=== PATIENT | male | born 1985 | race Two or more races ===

== ENCOUNTER 2017-05-11 20:06 | Emergency (ER) | payer MEDICAID ==
[~2017-05-11] VITALS: Ht 177.8 cm; Wt 77.1 kg
--- NOTE | 2017-05-11 20:15 | NUR ---
BB FAMILY; RIGHT FLANK PAIN. PT AOX3 RR EVEN AND UNLABORED. NO SOB NOTED. NAD NOTED. NO NVD AT THIS TIME. PT GOWNED AND PLACED ON MONITOR WAITING FOR MD NOBLES. PT NOTED HX OF KIDNEY STONES
[2017-05-11 20:30] LABS: BASOPHILS # (AUTO) 0.1 /CMM (0.0-0.2); EOSINOPHILS # (AUTO) 0.2 /CMM (0.0-0.7); EOSINOPHILS % (AUTO) 1.4 % (0.0-6.0); HEMATOCRIT 47 % (39-51); HEMOGLOBIN 16.2 g/dL (13.5-17.5); LYMPHOCYTES # (AUTO) 4.1 /CMM (0.8-4.8); LYMPHOCYTES % (AUTO) 32.8 % (20.0-44.0); MEAN CORPUSCULAR HEMOGLOBIN 29 PG (26.0-33.0); MEAN CORPUSCULAR HGB CONC 35 g/dl (31.0-36.0); MEAN CORPUSCULAR VOLUME 84 fL (80-96); MONOCYTES # (AUTO) 0.9 /CMM (0.1-1.30); MONOCYTES % (AUTO) 7.5 % (2.0-12.0); NEUTROPHILS # (AUTO) 7.3 /CMM (1.8-8.9); NEUTROPHILS % (AUTO) 57.3 % (43.0-81.0); PLATELET COUNT (AUTO) 207 /CMM (150-450); RDW COEFFICIENT OF VARIATION 11.9 (11.5-15.0); RED BLOOD CELL COUNT(AUTO) 5.61 MIL/uL (4.5-6.0); WHITE BLOOD COUNT (AUTO) 12.6 K/uL (4.3-11.0)
--- NOTE | 2017-05-11 20:36 | NUR ---
PT TO RADIOLOGY FOR CT ABD/PELVIS
[2017-05-11 20:39] LABS: CALCIUM, SERUM 9.4 mg/dL (8.5-10.1); POTASSIUM 3.3 mmol/L (3.5-5.1)
--- NOTE | 2017-05-11 20:43 | NUR ---
PT RETURNED FROM CT.
[2017-05-11 20:50] LABS: ALBUMIN 4.3 g/dL (3.4-5.0); BILIRUBIN,DIRECT 0.1 mg/dL (0.0-0.2); BILIRUBIN,TOTAL 0.4 mg/dL (0.2-1.0); TOTAL PROTEIN, SERUM 7.8 g/dL (6.4-8.2)
--- NOTE | 2017-05-11 21:12 | NUR ---
URINE COLLECTED. CALLED LAB FOR EPIC ANALYST.
[2017-05-11 21:22] LABS: APPEARANCE,URINE Clear (CLEAR); BILIRUBIN,URINE Negative (NEGATIVE); BLOOD, URINE Large Ery/uL (NEGATIVE); COLOR,URINE Yellow (YELLOW); KETONES,URINE Negative (NEGATIVE); LEUKOCYTE ESTERASE ,URINE Negative (NEGATIVE); NITRITE, URINE Negative (NEGATIVE); PROTEIN,URINE Negative (NEGATIVE); UGLUCOSE Negative (NEGATIVE); UROBILINOGEN,URINE 0.2 EU/dL (0.2)
[2017-05-11 21:37] LABS: BACTERIA,URINE Rare /HPF (None Seen); RBC,URINE 51-80 /HPF (0-2); SQUAMOUS EPITHELIAL CELL,UR Few /HPF (None Seen); WBC,URINE 0-2 /HPF (0-3)
--- NOTE | 2017-05-11 22:00 | NUR ---
PAC VICKY AT BEDSIDE SPEAKING TO PT REGARDING RESULTS
--- NOTE | 2017-05-11 22:04 | NUR ---
IV removed. Catheter intact and site benign. Pressure and 4x4 applied to site. No bleeding noted. Patient discharged to home in stable condition. Written and verbal after care instructions given. Patient verbalizes understanding of instruction. PT ambulatory with a steady gait. pt instructed not to drive. pt verbalize understanding. accompanied by
[2017-05-11 22:06] VITALS: BP 128/78
== END 2017-05-11 22:06 | disposition home or self-care (01) ==
LOC: ER 20:08
DX: N20.0 Calculus of kidney (principal); N13.2 Hydronephrosis with renal and ureteral calculous obstruction; Z87.442 Personal history of urinary calculi
CPT/HCPCS: 36415; 80048-TC; 80076-TC; 81000-TC; 83690-TC; 85025-TC; A4606; J1170; J1885; J2405; J7030; Z7610

== ENCOUNTER 2017-05-12 04:02 | Emergency (ER) | payer MEDICAID ==
[~2017-05-12] VITALS: Ht 170.2 cm; Wt 86.2 kg
--- NOTE | 2017-05-12 04:15 | NUR ---
TO BED 2 AMBULATROY C/O R FLANK PAIN. PT WAS SEEN AND EVALUATED HERE LAST NIGHT AND WAS DIAGNOSED WITH KIDNEY STONE. PTWAS NOT ABLE TO FILL RX AND NOW C/O R FLANK PAIN.
--- NOTE | 2017-05-12 04:16 | NUR ---
WHITLEY OVIEDO AT BEDSIDE TO GIULIANO BLANDON.
[2017-05-12] MEDS ORDERED: KETOROLAC TROMETHAMINE INJ 30 MG/ML VIAL ONE (04:23)
[2017-05-12] MEDS ORDERED: HYDROMORPHONE INJ 2 MG/ML DISP.SYRIN ONE ×2 (04:24→05:08)
[2017-05-12] MEDS ORDERED: KETOROLAC TROMETHAMINE INJ 30 MG/ML VIAL IV ONE (04:30)
[2017-05-12] MEDS ORDERED: IV NS 0.9% 1,000 ML BAG IV ONE (04:30)
[2017-05-12] MEDS ORDERED: HYDROMORPHONE 1 MG/1 ML DISP.SYRIN IV ONE ×2 (04:30→05:30)
--- NOTE | 2017-05-12 04:30 | NUR ---
PT MEDICATED BY RN PER ER MD ORDER.
--- NOTE | 2017-05-12 05:11 | NUR ---
IV removed. Catheter intact and site benign. Pressure and 4x4 applied to site. No bleeding noted. Patient discharged to home in stable condition. Written and verbal after care instructions given. Patient verbalizes understanding of instruction. ambulatory with a steady gait noted. pt aaox4 no acute disrtess noted, resp even and unlabored. advice pt not to drive or operate any machineryd ue to pt was given anrcotic medicine. pt verbalize understanding. pt at bedside to take pt home.
[2017-05-12 05:12] VITALS: BP 134/88
== END 2017-05-12 05:12 | disposition home or self-care (01) ==
LOC: ER 04:05
DX: N20.1 Calculus of ureter (principal)
CPT/HCPCS: A4606; J1170; J1885; J7030; Z7610